=== PATIENT | female | born 1955 | race Caucasian/White ===

== ENCOUNTER 2018-02-20 11:02 | Emergency (ER) | payer MEDICAID ==
[~2018-02-20] VITALS: Ht 165.1 cm; Wt 94.3 kg
[~2018-02-20 11:02] MED LIST: ACET-2634 PO; ALBMDI INH; ESOM10SU PO; LISI-600 PO; MOME13HF2 INH; PRED10TA PO; SUCR1TAB PO
[2018-02-20 11:08] VITALS: BP_SYST 156
[2018-02-20 11:51] LABS: BILIRUBIN,URINE NEGATIVE (NEGATIVE); BLOOD, URINE NEGATIVE (NEGATIVE); CLARITY/URINE CLEAR (CLEAR); COLOR,URINE YELLOW (YELLOW); GLUCOSE,URINE NEGATIVE (NEGATIVE); KETONES,URINE NEGATIVE (NEGATIVE); LEUKOCYTE ESTERASE ,URINE TRACE (NEGATIVE); NITRITE, URINE NEGATIVE (NEGATIVE); PH,URINE 6.5 (5.0-8.0); PROTEIN URINE NEGATIVE (NEGATIVE); UROBILINOGEN,URINE 0.2 (0.2-1.0)
[2018-02-20 12:12] LABS: BACTERIA,URINE RARE /HPF (None Seen); RBC,URINE 0-3 /HPF (0-3)
[2018-02-20 12:19] LABS: BASOPHILS % (AUTO) 0.8 % (0.0-2.0); EOSINOPHILS # (AUTO) 0.1 K/uL (0.0-0.4); EOSINOPHILS % (AUTO) 2.8 % (0.0-4.0); HEMOGLOBIN 12.8 g/dL (12.0-16.0); LYMPHOCYTES # (AUTO) 1.6 K/uL (1.0-5.5); LYMPHOCYTES % (AUTO) 37.5 % (20.5-51.5); MEAN CORPUSCULAR HEMOGLOBIN 30 pg (27-31); MEAN CORPUSCULAR HGB CONC 34 % (32-36); MEAN CORPUSCULAR VOLUME 90 fL (79.0-98.0); MONOCYTES # (AUTO) 0.3 K/uL (0.0-1.0); MONOCYTES % (AUTO) 7.7 % (1.7-9.3); NEUTROPHILS # (AUTO) 2.3 K/uL (1.8-7.7); NEUTROPHILS % (AUTO) 51.2 % (40.0-70.0); PLATELET COUNT (AUTO) 175 K/uL (130-430); RED CELL DISTRIBUTION WIDTH 13.8 % (9.0-15.0); WHITE BLOOD COUNT (AUTO) 4.3 K/uL (4.8-10.8)
[2018-02-20 12:32] LABS: CALCIUM 9.2 mg/dL (8.4-11.0); CREATININE 0.63 mg/dL (0.55-1.30)
[2018-02-20 12:35] LABS: PROTHROMBIN TIME 10.4 SECS (9.5-12.5)
[2018-02-20 12:37] LABS: ALBUMIN 3.3 g/dL (3.4-4.8); TOTAL BILIRUBIN 0.3 mg/dL (0.0-1.0)
[2018-02-20] MEDS ORDERED: KETOROLAC TROMETHAMINE 30 MG VIAL IVP ONE (13:00)
[2018-02-20 13:45] VITALS: BP_SYST 154
== END 2018-02-20 13:45 | disposition home or self-care (01) ==
LOC: SED 11:02
DX: R10.9 Unspecified abdominal pain (principal); M19.90 Unspecified osteoarthritis, unspecified site; I10 Essential (primary) hypertension; Z90.49 Acquired absence of other specified parts of digestive tract; Z90.89 Acquired absence of other organs; Z88.0 Allergy status to penicillin; Z88.2 Allergy status to sulfonamides; Z88.6 Allergy status to analgesic agent; Z79.899 Other long term (current) drug therapy
CPT/HCPCS: 36415; 71045; 74176; 80053; 81000; 83605; 83690; 85025; 85610; 87040; 93005; 96374; 99284; J1885

== ENCOUNTER 2019-04-03 11:30 | Emergency (ER) | payer MEDICAID ==
[~2019-04-03] VITALS: Ht 162.6 cm; Wt 89.8 kg
[2019-04-03 11:30] VITALS: BP_SYST 142
--- NOTE | 2019-04-03 11:30 | NUR ---
Patient triaged and placed in waiting room. VSS and patient appears in no acute distress at this time. Accompanied by SELF, awaiting available bed, and MD notified of need for MSE.
--- NOTE | 2019-04-03 12:20 | NUR ---
Patient arrived via POV, AAOx4, and ambulatory with steady gait. Patient c/c of cough for 3 weeks, progressively getting worse and is productive with white sputum. Patient notes fever and chills. Patient was seen previously at urgent care with viral syndrome. No other complaints at this time. Will continue to follow up and monitor.
--- NOTE | 2019-04-03 12:21 | NUR ---
ER at bedside examining patient.
--- NOTE | 2019-04-03 12:33 | NUR ---
Patient given written and verbal discharge instructions and verbalizes understanding. ER MD Washburn discussed with patient the results and treatment provided. Patient in stable condition. ID arm band removed. Rx of Freya Holland given. Patient educated on pain management and to follow up with PMD. Pain Scale 0. Opportunity for questions provided and answered. Medication side effect fact sheet provided.
[2019-04-03 16:21] VITALS: BP_SYST 139
== END 2019-04-03 12:33 | disposition home or self-care (01) ==
LOC: SED 11:30
DX: J40 Bronchitis, not specified as acute or chronic (principal); I10 Essential (primary) hypertension; Z88.0 Allergy status to penicillin; Z88.2 Allergy status to sulfonamides; Z88.5 Allergy status to narcotic agent; Z79.899 Other long term (current) drug therapy
CPT/HCPCS: 99283